=== PATIENT | female | born 1985 | race Caucasian/White ===

== ENCOUNTER 2020-04-19 07:25 | Emergency (ER) | payer MEDICAID ==
[2020-04-19] MEDS ORDERED: Ketorolac 60 MG/2 ML SDV IM ONE (08:03)
[2020-04-19] MEDS ORDERED: Ondansetron 4 MG Tab.DIS PO ONE (08:09)
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
[2020-04-19] MEDS ORDERED: Lactated Ringers 1,000 ML IV SCH (09:15)
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
[2020-04-19] MEDS ORDERED: HYDROmorphone 1 MG/ML Syringe IVPUSH ONE (09:32)
== END 2020-04-19 11:13 ==
LOC: JP.ED 07:25
DX: S24.104A Unspecified injury at T11-T12 level of thoracic spinal cord, initial encounter (principal); S22.081A Stable burst fracture of T11-T12 vertebra, initial encounter for closed fracture; J45.909 Unspecified asthma, uncomplicated; F41.9 Anxiety disorder, unspecified; F32.9 Major depressive disorder, single episode, unspecified; E10.9 Type 1 diabetes mellitus without complications; E66.9 Obesity, unspecified; Z68.36 Body mass index [BMI] 36.0-36.9, adult; V49.9XXA Car occupant (driver) (passenger) injured in unspecified traffic accident, initial encounter
CPT/HCPCS: 36415; 51702; 72131; 80048; 80305; 80307; 81001; 85027; 96361; 96372; 96374; 99285; A9270; J1170; J1885; J7120